=== PATIENT | female | born 1980 | race Two or more races ===

== ENCOUNTER 2019-09-28 17:35 | Emergency (ER) | payer MEDICAID ==
[~2019-09-28] VITALS: Ht 167.6 cm; Wt 117.9 kg
[2019-09-28 17:50] VITALS: BP 145/72
[2019-09-28] MEDS ORDERED: ACETAMINOPHEN/CODEINE#3 (300/30mg) TAB PO ONE (20:45)
[2019-09-28] MEDS ORDERED: PROMETHAZINE HCL 25 MG/ML 1ML IM ONE (20:45)
[2019-09-28] MEDS ORDERED: PHENAZOPYRIDINE HCL 100 MG TAB PO ONE (20:45)
[2019-09-28] MEDS ORDERED: cefTRIAXone SOD 1,000 MG VL IM ONE (20:45)
== END 2019-09-28 21:16 | disposition home or self-care (01) ==
LOC: ER 17:39
DX: J06.9 Acute upper respiratory infection, unspecified (principal); N39.0 Urinary tract infection, site not specified
CPT/HCPCS: 96372; 99283; J0696; J2550